=== PATIENT | female | born 1945 | race Caucasian/White ===

== ENCOUNTER 2017-12-13 22:22 | Emergency (ER) | payer MEDICARE ==
[~2017-12-13] VITALS: Ht 160 cm; Wt 107.5 kg
[2017-12-13 22:48] VITALS: BP 196/88; PULSE 93; RESP 18; TEMP 98.8; O2SAT 95
[2017-12-13 23:01] LABS: BILIRUBIN, URINE NEG (NEG); BLOOD, URINE SMALL (NEG); GLUCOSE,URINE NEG (NEG); KETONE, URINE NEG (NEG); NITRITE,URINE NEG (NEG); URINE COLOR YELLOW (YELLW/STRAW); URINE LEUKOCYTE ESTERASE LARGE (NEG)
[2017-12-13 23:04] LABS: WBC, URINE 100-200 /hpf (0-5); WHITE BLOOD CELL CLUMPS OCC
[2017-12-13] MEDS ORDERED: LISI20TA PO (23:04)
[2017-12-13] MEDS ORDERED: ASPI81TA81 (23:04)
[2017-12-13] MEDS ORDERED: PRAV40TA PO (23:04)
[2017-12-13] MEDS ORDERED: MELO15TA20 PO (23:04)
[2017-12-13] MEDS ORDERED: TOPR100T PO (23:04)
[2017-12-13] MEDS ORDERED: IBUP1TAB7 PO (23:04)
[2017-12-13 23:05] LABS: BACTERIA, URINE FEW /hpf
[2017-12-13] MEDS ORDERED: NITROFURANTOIN MONOHYD MACROCR 100 MG CAP PO ONE (23:45)
[2017-12-13] MEDS ORDERED: KETOROLAC TROMETHAMINE 60 MG/2 ML (IM) VIAL IM ONE (23:45)
[2017-12-13] MEDS ORDERED: ORPHENADRINE INJ 60 MG/2 ML AMP IM ONE (23:45)
[2017-12-14] MEDS ORDERED: TRAM50TA PO (00:30)
[2017-12-14] MEDS ORDERED: MACR100C2 PO (00:30)
--- NOTE | 2017-12-14 00:31 | PD ---
HPI Chief Complaint: Pain: Acute or Chronic Time Seen by Provider: 23:36 Travel History International Travel<30 days: No Contact w/Intl Traveler<30days: No Traveled to known affect area: No History of Present Illness HPI 72-year-old female presents to the emergency department for several days of localized left buttock pain. Patient states unable to get comfortable and with walking or climbing stairs or in-line activity has increased pain. Patient has tried [id number] ibuprofen and prescription meloxicam. Patient had similar episode a few weeks ago prior to traveling to [place] and was prescribed meloxicam but no imaging study was done at that time. Patient denies any injury or fall. Patient denies any referred lower extremity numbness tingling weakness or pain. No report of saddle anesthesia or bladder or bowel dysfunction. Patient denies fever chills nausea vomiting chest pain shortness of breath abdominal pain flank pain dysuria frequency urgency hematuria diarrhea or constipation. Patient is noted no redness warmth or swelling to the left buttock. Patient rates discomfort as severe, 7/10 in intensity. Patient states that is difficult to find a position of comfort due to any pressure placed on the left buttock cheek. Patient does have history of hypertension and dyslipidemia but takes medications for these conditions and has had no headache altered mental status visual disturbance unilateral numbness tingling or weakness or balance disturbance. Also no chest pain no palpitations no sweats no referred neck jaw back shoulder arm or abdominal pain. Patient denies any known cardiac disease. Patient also denies any lower extremity swelling or calf pain. No orthopnea or PND. No dyspnea on exertion. PFSH Past Medical History Narrative Medical Hypertension dyslipidemia; colon surgery; no tobacco use; nursing notes reviewed High Cholesterol: Yes Diminished Hearing: No Hypertension: Yes Influenza Vaccination: Yes ?: Not Past Surgical History Other Surgery: Yes (COLON SX ) Social History Alcohol Use: Yes (WINE/ETOH DAILY) Tobacco Use: No Substance Use: No Allergies-Medications (Allergen,Severity, Reaction): Coded Allergies: No Known Allergies (Unverified , 12/13/17) Reported Meds & Prescriptions Reported Meds & Active Scripts Active Macrobid (Nitrofurantoin Monoh/Nitrofur Macro) 100 Mg Cap 100 Mg PO BID Tramadol (Tramadol HCl) 50 Mg Tab 50 Mg PO Q6H PRN Reported Meloxicam 15 Mg Tab 15 Mg PO DAILY Ibuprofen 800 Mg Tab 800 Mg PO Q6HR PRN Aspir-81 (Aspirin) 81 Mg Tabdr Lisinopril-Hctz 20-12.5 Mg Tab 1 Tab PO DAILY Toprol XL (Metoprolol Succinate) 100 Mg Tab 100 Mg PO DAILY Pravachol (Pravastatin) 40 Mg Tab 40 Mg PO DAILY Review of Systems Except as stated in HPI: all other systems reviewed are Neg General / Constitutional: No: Fever, Chills Eyes: No: Blindness HENT: No: Headaches, Vertigo, Lightheadedness, Neck Pain Cardiovascular: No: Chest Pain or Discomfort, Palpitations, Diaphoresis, Dyspnea on exertion, Edema, Claudication Respiratory: No: Cough, Shortness of Breath, Orthopnea, Pleuritic Pain Gastrointestinal: No: Nausea, Vomiting, Abdominal Pain Genitourinary: No: Dysuria, Flank Pain Musculoskeletal: Positive: Pain (left buttock), No: Myalgias, Arthralgias, Limited ROM Skin: No Rash Neurologic: No: Weakness, Dizziness, Syncope, Focal Abnormalities, Coordination Problem, Change in Mentation, Paresthesia, Incontinence Psychiatric: No: Anxiety Hematologic/Lymphatic: No: Lymph Node Enlargement Physical Exam Narrative GENERAL: Well-developed well-nourished female no acute distress or respiratory distress; GCS 15 SKIN: Warm and dry. HEAD: Atraumatic. Normocephalic. EYES: Pupils equal and round. No scleral icterus. No injection or drainage. ENT: No nasal bleeding or discharge. Mucous membranes pink and moist. NECK: Trachea midline. No JVD. No tenderness to direct palpation along the cervical spine no bony step-off. Supple. CARDIOVASCULAR: Regular rate and rhythm. RESPIRATORY: No accessory muscle use. Clear to auscultation. Breath sounds equal bilaterally. GASTROINTESTINAL: Abdomen soft, non-tender, nondistended. Hepatic and splenic margins not palpable. MUSCULOSKELETAL: Extremities without clubbing, cyanosis, or edema. No obvious deformities. Tenderness to palpation of the left buttock cheek without redness induration fluctuance warmth abrasion ecchymosis and no decreased range of motion on hip internal/external rotation abduction abduction flexion extension although abduction does increase discomfort. Distally bilateral lower extremities motor strength 5/5 sensory exam intact DTRs 2+ and equal capillary refill brisk and less than 2 seconds no edema no erythema no increased warmth no pallor or coolness. Intact range of motion. No tenderness along the dorsal or lumbar spine to palpation no flank tenderness. Negative straight leg raising bilaterally. NEUROLOGICAL: Awake and alert. No obvious cranial nerve deficits. Motor grossly within normal limits. Five out of 5 muscle strength in the arms and legs. Normal speech. PSYCHIATRIC: Appropriate mood and affect; insight and judgment normal. Data Data Last Documented VS Vital Signs Date Time Temp Pulse Resp B/P (MAP) Pulse Ox O2 Delivery O2 Flow Rate FiO2 12/14/17 02:54 82 18 173/84 (113) 97 Nasal Cannula 2.00 12/13/17 22:48 98.8 Orders Orders Urinalysis - C+S If Indicated (12/13/17 22:51) Urine Culture (12/13/17 22:56) Nitrofurantoin Monohyd Macrocr (Macrobid (12/13/17 23:45) Ketorolac Inj (Toradol Inj) (12/13/17 23:45) Orphenadrine Inj (Norflex Inj) (12/13/17 23:45) Hip, Uni(Ap&Lat) W Ap Pelvis (12/13/17 ) Tramadol (Ultram) (12/14/17 01:00) ^ Saline Lock (12/14/17 00:51) Basic Metabolic Panel (Bmp) (12/14/17 00:51) Ondansetron Inj (Zofran Inj) (12/14/17 01:00) Hydromorphone Pf Inj (Dilaudid Pf Inj) (12/14/17 01:00) Sodium Chlorid 0.9% 500 Ml Inj (Ns 500 M (12/14/17 02:00) Ct Abd/Pel W Iv Contrast(Rout) (12/14/17 ) Iohexol 350 Inj (Omnipaque 350 Inj) (12/14/17 03:17) Labs Laboratory Tests Test 12/13/17 22:56 12/14/17 01:06 Urine Color YELLOW Urine Turbidity CLOUDY Urine pH 6.0 Urine Specific [place] 1.020 Urine Protein NEG mg/dL Urine Glucose (UA) NEG mg/dL Urine Ketones NEG mg/dL Urine Occult Blood SMALL Urine Nitrite NEG Urine Bilirubin NEG Urine Urobilinogen 0.2 MG/DL Urine Leukocyte Esterase LARGE Urine RBC 4-9 /hpf Urine WBC 100-200 /hpf Urine WBC Clumps OCC Urine Squamous Epithelial Cells 6-8 /hpf Urine Bacteria FEW /hpf Microscopic Urinalysis Comment CULTURE INDICATED Blood Urea Nitrogen 34 MG/DL Creatinine 1.20 MG/DL Random Glucose 125 MG/DL Calcium Level 8.9 MG/DL Sodium Level 140 MEQ/L Potassium Level 4.1 MEQ/L Chloride Level 106 MEQ/L Carbon Dioxide Level 25.0 MEQ/L Anion Gap 9 MEQ/L Estimat Glomerular Filtration Rate 44 ML/MIN MDM Medical Decision Making Medical Screen Exam Complete: Yes Emergency Medical Condition: Yes Medical Record Reviewed: Yes Interpretation(s) UA: Cloudy, white blood cells clumped white blood cells few bacteria; culture indicated Left hip with pelvis x-ray: FINDINGS: 3 views of the left hip and pelvis. Prominent degenerative findings of the lower lumbar spine with facet arthrosis at L4-5 and L5-S1. Sacroiliac joints within normal limits. Minimal left hip osteophytes. No evidence of joint narrowing. No evidence of fracture. Alignment within normal limits. Enthesophytes adjacent to the greater trochanter on the left. CONCLUSION: Minimal osteoarthritic findings of the left hip. Anthony Arauz MD on December 14, 2017 at 0:36 Board Certified Radiologist. This report was verified electronically. CT abd/pel: CONCLUSION: 1. Heterogeneous density within the gallbladder likely representing cholelithiasis. No pericholecystic inflammatory changes. Diffusely dilated common duct and mild diffuse intrahepatic biliary ductal dilatation. 2. Degenerative findings lumbar spine. 3. Diffuse arterial calcification. Anthony Arauz MD on December 14, 2017 at 3:54 Board Certified Radiologist. This report was verified electronically. Differential Diagnosis Buttock pain, piriformis syndrome/spasm, sciatica, bursitis,; unlikely/also to consider renal colic mass septic arthritis iliac aneurysm Narrative Course Imaging of the left hip and pelvis performed; urinalysis specimen collected; patient administered Toradol 60 mg IM along with Norflex 60 mg IM Patient identified to have abnormal urinalysis with white blood cells clumped white blood cells few bacteria culture indicated; patient administered Macrobid 100 mg MOUTH: Mucous membranes moist, no lesions, tongue and gums appear normal. Imaging remarkable for After Toradol and Norflex patient's complaint of pain is now; patient administered tramadol 50 mg x 1 dose Patient remains clinically comfortable after one-time dose of Dilaudid 1 mg IV informed of lab results and imaging results including CAT scan resulted by radiologist identified to have gallstones and some ductal dilatation which patient reports she is aware of denies any abdominal pain no tenderness on exam no clinical Gee sign no fever no chills no nausea no vomiting no anorexia and no precipitating dietary ingestion. Patient states pain is isolated to the left buttock only and has markedly improved after one-time dose of Dilaudid. Patient is aware that she will be given a prescription for pain medication as well as medication as needed for nausea and requests a refill of her meloxicam. Patient is stable for outpatient management at this time. Patient is encouraged to follow-up with her primary care provider upon returning back to [place] after her vacation here. Patient is encouraged to return immediately to the emergency department for pain fever vomiting or any concerns. Diagnosis Primary Impression: Spasm of left piriformis muscle Additional Impressions: UTI (urinary tract infection) Qualified Codes: N39.0 - Urinary tract infection, site not specified Arthritis of left hip Cholelithiasis Renal insufficiency Referrals: Primary Care Physician call for appointment Patient Instructions: General Instructions Additional Instructions: For acute inflammation apply ice pack intermittently; for chronic inflammation apply warm moist heat intermittently to affected area Take pain medication tramadol as prescribed as needed for pain greater than 5/ 10 intensity. Complete course of antibiotic as prescribed Practice stretching the buttock muscle as discussed Return to the emergency department for pain fever vomiting or any concerns May continue to use as tolerated ibuprofen/Advil/Motrin per package directions up to 600 mg as often as every 6-8 hours for pain or inflammation greater than 5 /10 intensity otherwise 400 mg as often as every 6 hours for pain less than 5/ 10 in intensity. Or for fever 100.4F or greater. Increase fluid hydration May use acetaminophen/Tylenol every 4 hours as needed for fever 100.4F or greater Med/Other Pt SpecificInfo: Prescription(s) given Scripts Ondansetron Odt (Zofran Odt) 4 Mg Tab 4 MG SL Q6HR Y for Nausea/Vomiting, #10 TAB 0 Refills Prov: Reny Wyman MD 12/14/17 Meloxicam (Meloxicam) 15 Mg Tab 15 MG PO DAILY for Arthritis Pain, #10 TAB 0 Refills Prov: Reny Wyman MD 12/14/17 Nitrofurantoin Monohydrate Macrocrystals (Macrobid) 100 Mg Cap 100 MG PO BID for Infection, #14 CAP 0 Refills Prov: Reny Wyman MD 12/14/17 Tramadol (Tramadol) 50 Mg Tab 50 MG PO Q6H Y for PAIN, #12 TAB 0 Refills Prov: Reny Wyman MD 12/14/17 Disposition: 01 DISCHARGE HOME Condition: Stable Reny Wyman MD Dec 14, 2017 00:31
--- NOTE | 2017-12-14 00:39 | RADRPT ---
EXAM DATE/TIME: 12/13/2017 23:58 [facility] COMPARISON: No previous studies available for comparison. INDICATIONS : Left hip pain from unknown injury. MEDICAL HISTORY : None. SURGICAL HISTORY : None. ENCOUNTER: Initial ACUITY: 1 day PAIN SCORE: 8/10 LOCATION: Left posterior hip. FINDINGS: 3 views of the left hip and pelvis. Prominent degenerative findings of the lower lumbar spine with fa cet arthrosis at L4-5 and L5-S1. Sacroiliac joints within normal limits. Minimal left hip osteophytes . No evidence of joint narrowing. No evidence of fracture. Alignment within normal limits. Enthesophy charles adjacent to the greater trochanter on the left. CONCLUSION: Minimal osteoarthritic findings of the left hip. Anthony Arauz MD on December 14, 2017 at 0:36 Board Certified Radiologist. This report was verified electronically.
[2017-12-14 01:00] VITALS: BP 153/78; PULSE 83; RESP 18; O2SAT 96
[2017-12-14] MEDS ORDERED: HYDROmorphone HCL PF 2 MG/ML VIAL IV PUSH ONE (01:00)
[2017-12-14] MEDS ORDERED: traMADol HCL 50 MG TAB PO ONE (01:00)
[2017-12-14] MEDS ORDERED: ONDANSETRON HCL 4 MG/2 ML VIAL IV PUSH ONE (01:00)
[2017-12-14 01:21] LABS: CALCIUM 8.9 MG/DL (8.5-10.1)
[2017-12-14 01:25] LABS: CREATININE 1.2 MG/DL (0.50-1.00)
[2017-12-14 01:43] VITALS: RESP 16; O2SAT 90
[2017-12-14] MEDS ORDERED: SODIUM CHLORID 0.9% 500 ML INJ 500 ML IV ONE (02:00)
[2017-12-14 02:54] VITALS: BP 173/84; PULSE 82; RESP 18; O2SAT 97
[2017-12-14] MEDS ORDERED: IOHEXOL 350 MG/ML 10 ML VIAL (for RAD DIAG) IVCONTRAST ONE (03:17)
--- NOTE | 2017-12-14 04:03 | RADRPT ---
EXAM DATE/TIME: 12/14/2017 03:06 [facility] COMPARISON: No previous studies available for comparison. INDICATIONS : Left sided posterior pelvic pain. IV CONTRAST: 95 cc Omnipaque 350 (iohexol) IV ORAL CONTRAST: No oral contrast ingested. RADIATION DOSE: 22.18 CTDIvol (mGy) MEDICAL HISTORY : Hypercholesterolemia. Hypertension. SURGICAL HISTORY : Benign growth removed in colon. ENCOUNTER: Initial ACUITY: 3 days PAIN SCALE: 5/10 LOCATION: Left pelvis TECHNIQUE: Volumetric scanning of the abdomen and pelvis was performed. Using automated exposure control and ad justment of the mA and/or kV according to patient size, radiation dose was kept as low as reasonably achievable to obtain optimal diagnostic quality images. DICOM format image data is available electro nically for review and comparison. FINDINGS: LOWER LUNGS: The visualized lower lungs are clear. LIVER: Mild diffuse hepatic steatosis. No focal masses identified. Heterogeneous density within the gallblad kelly likely representing gallstones. No pericholecystic inflammatory changes. Extrahepatic biliary gema juliano dilatation is seen with the distal common duct measuring 12 mm in diameter. Mild diffuse intrahep atic biliary ductal dilatation. SPLEEN: Normal size without lesion. PANCREAS: Within normal limits. KIDNEYS: Multiple right-sided renal cysts. No evidence of hydronephrosis. Bilateral renal arterial calcificati on noted. ADRENAL GLANDS: Within normal limits. VASCULAR: Diffuse aortoiliac calcification. Aortic diameter are within normal limits. BOWEL/MESENTERY: No evidence of bowel dilatation. No free air or free fluid. Appendix not identified. ABDOMINAL WALL: Within normal limits. RETROPERITONEUM: There is no lymphadenopathy. BLADDER: No wall thickening or mass. REPRODUCTIVE: Within normal limits. INGUINAL: There is no lymphadenopathy or hernia. MUSCULOSKELETAL: Degenerative findings of the lumbar spine with prominent facet arthrosis at L5-S1. CONCLUSION: 1. Heterogeneous density within the gallbladder likely representing cholelithiasis. No pericholecysti c inflammatory changes. Diffusely dilated common duct and mild diffuse intrahepatic biliary ductal di latation. 2. Degenerative findings lumbar spine. 3. Diffuse arterial calcification. Anthony Arauz MD on December 14, 2017 at 3:54 Board Certified Radiologist. This report was verified electronically.
[2017-12-14] MEDS ORDERED: ZOFR4TAB3 SL (04:15)
[2017-12-14] MEDS ORDERED: MELO15TA20 PO (04:15)
[2017-12-14 04:27] VITALS: BP 164/95
== END 2017-12-14 04:42 | disposition home or self-care (01) ==
LOC: PHED 22:22
DX: M62.838 Other muscle spasm (principal); N39.0 Urinary tract infection, site not specified; M16.12 Unilateral primary osteoarthritis, left hip; K80.20 Calculus of gallbladder without cholecystitis without obstruction; N28.9 Disorder of kidney and ureter, unspecified; M51.36 Other intervertebral disc degeneration, lumbar region; I10 Essential (primary) hypertension; E78.5 Hyperlipidemia, unspecified; E78.00 Pure hypercholesterolemia, unspecified
CPT/HCPCS: 73502; 74177; 80048; 81001; 87086; 96361; 96372; 96374; 96375; 99285; J1170; J1885; J2360; J2405; J7040; Q9967